=== PATIENT | female | born 1980 | race Caucasian/White ===

== ENCOUNTER 2019-03-21 09:06 | Day surgery (SDC) ==
[~2019-03-21 09:06] MED LIST: DIPRIVAN 1% ONE; FENTANYL ONE
[2019-03-21] MEDS ORDERED: REGLAN ONE (09:16)
[2019-03-21] MEDS ORDERED: PEPCID ONE (09:16)
[2019-03-21] MEDS ORDERED: CLINDAMYCIN 900 MG/D5W 900 MG/50 ML IVPB ONE (09:17)
[2019-03-21] MEDS ORDERED: LR 1,000 ML ONE ×2 (09:17→13:31)
[2019-03-21] MEDS ORDERED: CLINDAMYCIN 900 MG/NS 900 MG/50 ML IVPB IV ONE (10:00)
[2019-03-21] MEDS ORDERED: XYLOCAINE 1% ONE (11:16)
[2019-03-21] MEDS ORDERED: MARCAINE 0.25% ONE (11:16)
[2019-03-21] MEDS ORDERED: OFIRMEV 1000 MG/ISOTONIC SOLN 1,000 MG/100 ML BOTTLE ONE (11:49)
[2019-03-21] MEDS ORDERED: ROBINUL ONE (11:49)
[2019-03-21] MEDS ORDERED: ZOFRAN ONE (11:49)
[2019-03-21] MEDS ORDERED: XYLOCAINE-MPF 2% ONE (11:49)
[2019-03-21] MEDS ORDERED: DECADRON ONE (11:49)
[2019-03-21] MEDS ORDERED: QUELICIN (DOSE) ONE (11:49)
[2019-03-21] MEDS: DILAUDID ONE ×8 (13:14→13:54)
[2019-03-21] MEDS ORDERED: DILAUDID IV PRN (14:13)
[2019-03-21] MEDS ORDERED: ZOFRAN IV PRN (14:13)
[2019-03-21] MEDS: PROTONIX PO SCH (16:44)
[2019-03-21] MEDS: LR 1,000 ML IV SCH (16:45)
[2019-03-21] MEDS: PERCOCET-10 PO PRN ×2 (16:47→20:41)
[2019-03-21 17:38] LABS: AGAP 15; BUN 11 mg/dL (8-22); CHLORIDE 99 mmol/L (98-107); COSMO 273; CREATININE 0.8 mg/dL (0.5-0.9); ESTIMATED GFR > 60; GLUCOSE 153 mg/dL (70-104); MAGNESIUM 1.6 mg/dL (1.5-2.7); POTASSIUM 4.5 mmol/L (3.5-5.1); SODIUM 135 mmol/L (136-145); TCO2 21 mmol/L (25-35)
[2019-03-21] MEDS ORDERED: FLU VACCINE IM ONE (18:09)
[2019-03-21] MEDS: OSCAL 500 PO SCH (20:40)
[2019-03-21] MEDS: PERIDEX MT SCH (20:41)
[2019-03-22] MEDS: PERCOCET-10 PO PRN ×3 (01:28→09:26)
[2019-03-22] MEDS: LR 1,000 ML IV SCH ×2 (01:29→02:41)
--- NOTE | 2019-03-22 01:39 | OPERATIVE NOTE ---
PROCEDURE DATE: 03/21/2019 PREOPERATIVE DIAGNOSIS: Multinodular goiter with compressive symptoms. POSTOPERATIVE DIAGNOSIS: Multinodular goiter with compressive symptoms. PROCEDURE PERFORMED: Total thyroidectomy. ESTIMATED BLOOD LOSS: 10 mL. SPECIMENS: None. ANESTHESIA: General. SURGEON: Bethel Elliott MD CHART READER: Dr. Chavez was present and he facilitated exposure and identification of anatomy distorted by our multinodular goiter. INDICATION: This is a 38-year-old female who has a multinodular goiter. FNA of the dominant lesion showed benign findings, but she had compressive symptoms and thyroidectomy is indicated. OPERATIVE FINDINGS: Multinodular goiter. There are 3 identified parathyroids that were well perfused and preserved. Recurrent laryngeal nerves are normal. No adenopathy noted. DESCRIPTION OF PROCEDURE: The risks, benefits and alternatives were discussed with the patient and she consented to the procedure. She was seen preoperatively and the surgical site was confirmed. She was taken to the operating room and placed in a supine position. General anesthesia was induced. The neck and chest were prepped with Betadine and draped in the usual fashion. After a time-out we made a transverse incision 2 fingerbreadths above the sternal notch in a natural skin crease, and carried this down through the subcutaneous tissue dividing the platysma and created subplatysmal flaps inferiorly and superiorly. The midline was divided as well, identifying the anterior surface of the thyroid parathyroid. We continued our dissection laterally, dissecting the strap muscle off this down to the level of the carotid artery laterally. We continued our dissection superiorly and encircled the superior pole and divided it with a LigaSure device inferiorly. We divided the middle vein and the inferior pole vessels retracting the thyroid out of its bed, protecting the recurrent laryngeal nerve and parathyroid glands. At this point we divided our isthmus and passed the specimen off removing the thyroid from the trachea. We then turned our attention the right side, strap muscles were divided. There was a large middle vein, we elected to go ahead and divide this first to prevent avulsion and we did this, and then encircled the superior pole dividing with the LigaSure device in the inferior pole. We mobilized it out of its bed, again protecting the recurrent laryngeal nerve. We did leave a portion of the posterior gland over the nerve and the parathyroid to prevent devascularization. The gland was passed off. We noted hemostasis after a Valsalva maneuver on both sides. The trachea was intact. We reapproximated the strap muscles with 3-0 Vicryl sutures. The platysma was reapproximated with 3-0 Vicryl suture and the skin was closed with 4-0 Monocryl. Dermabond was applied. Counts were correct. She was awoken and her voice was normal. She had no stridor. She was taken to the recovery room. cc: Eitan Elliott MD
[2019-03-22] MEDS: PROTONIX PO SCH ×2 (05:19→06:09)
[2019-03-22 07:20] LABS: AGAP 13; BUN 8 mg/dL (8-22); CALCIUM 9.6 mg/dL (8.8-10.2); CHLORIDE 102 mmol/L (98-107); COSMO 277; CREATININE 0.8 mg/dL (0.5-0.9); ESTIMATED GFR > 60; GLUCOSE 127 mg/dL (70-104); MAGNESIUM 1.8 mg/dL (1.5-2.7); POTASSIUM 4.1 mmol/L (3.5-5.1); SODIUM 139 mmol/L (136-145); TCO2 24 mmol/L (25-35)
[2019-03-22 07:40] VITALS: BP 114/63
[2019-03-22] MEDS: OSCAL 500 PO SCH (08:34)
[2019-03-22] MEDS: PERIDEX MT SCH (08:34)
[2019-03-22] MEDS ORDERED: MAG-OX PO SCH (09:00)
--- NOTE | 2019-03-23 14:25 | DISCHARGE SUMMARY ---
ADMISSION DATE: 03/21/2019 DISCHARGE DATE: 03/22/2019 PREOPERATIVE DIAGNOSIS: Symptomatic multinodular goiter. POSTOPERATIVE DIAGNOSIS: Symptomatic multinodular goiter. PROCEDURE PERFORMED: Total thyroidectomy. HISTORY OF PRESENT ILLNESS: This is a 38-year-old female who has had a multinodular goiter. She has compressive symptoms in the way of dysphagia, subjective shortness of breath and hoarseness. She had a biopsy that revealed benign findings. HOSPITAL COURSE: The patient was taken to the operating room on the day of her admission for the above procedure. For details, please see dictated operative note. Postoperatively, she was admitted overnight. We monitored her calcium levels, they actually sudha and remained at a normal level. Her hoarseness did seem to improve. She was able tolerate liquids and her pain controlled with Percocet and she was felt safe for discharge home as her wound was flat. Her vital signs were stable. DISCHARGE INSTRUCTIONS: Follow up with me in 1 week. Discharge instructions were given in written and verbal format. DISCHARGE MEDICATION: 1. She can continue taking her home medications. 2. She was given a prescription for Synthroid 125 mcg q.a.m. and was instructed on how to take this. 3. She will also take calcium 500 mg t.i.d. given the bilateral operation. 4. We gave her Percocet and Colace. DISCHARGE CONDITION: Good. DISCHARGE DIET: As tolerated. cc: Eitan Elliott MD
== END 2019-03-22 09:27 | disposition home or self-care (01) ==
LOC: OPS 09:06 → 4N 09:06 → OPS 03-22 09:27
PROVIDERS: ATTEND Surgery
PROC: GE.THYR (2019-03-21 11:21)